=== PATIENT | female | born 1970 | race Caucasian/White ===

== ENCOUNTER 2017-10-27 18:16 | Inpatient (IN) | payer BC, OTHER ==
[~2017-10-27 18:16] MED LIST: ISOVUE-370 76%-LOCM 1 ML ONE
[2017-10-27] MEDS ORDERED: Adacel (T-DAP) 0.5 ML VIAL ONE (18:35)
[2017-10-27] MEDS ORDERED: Ketorolac Tromethamine 30 MG/ML VIAL ONE ×2 (18:42→19:53)
[2017-10-27] MEDS ORDERED: Morphine 4 MG/ML VIAL ONE ×2 (18:42→19:53)
[2017-10-27 18:53] LABS: #Lymphocytes 2.2 thou/uL (1.20-3.40); #Monocytes 0.6 thou/uL (0.11-0.59); #Neutrophils 12.1 thou/uL (1.40-6.50); %Eosinophils 0.3 % (0.0-10.0); %Lymphocytes 14.9 % (21.0-51.0); %Neutrophils 80.8 % (42.0-75.0); Hemoglobin 11.9 g/dL (12.0-16.0); Mean Corpuscular HGB CONC 33.8 g/dL (32.0-36.0); Mean Corpuscular Volume 91.6 fl (81.0-99.0); Mean Platelet Volume 7.9 fL (7.4-10.4); Platelet Count 270 thou/uL (130-400); RBC Distribution Width 11.7 % (11.5-14.5); Red Blood Cell (RBC) Count 3.84 mill/uL (4.20-5.40)
[2017-10-27 19:09] LABS: CKMB 2.2 ng/mL (0-6.6); Troponin I Less than 0.010 ng/mL (< 0.028)
--- NOTE | 2017-10-27 19:43 | RAD ---
PELVIC RADIOGRAPH: Date: 10/27/17 PROVIDED CLINICAL HISTORY: Pelvic pain status post injury. FINDINGS: Fractures of the left pubic body and left acetabulum are demonstrated. No additional fracture is evid ent. Alignment appears anatomic. Joint spaces appear preserved. IMPRESSION: Left acetabular and left pubic body fractures. Correlation with CT recommended. POS: [facility]
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
--- NOTE | 2017-10-27 20:08 | RAD ---
LEFT SHOULDER 3 VIEWS: Date: 10/27/17 PROVIDED CLINICAL HISTORY: Left shoulder pain status post injury. FINDINGS: There is no evidence for fracture or other acute osseous abnormality. If there is persistent clinical concern, conservative management and follow-up imaging are advised. IMPRESSION: As above. POS: [facility]
--- NOTE | 2017-10-27 20:11 | RAD ---
LEFT KNEE 2 VIEWS: Date: 10/27/17 PROVIDED CLINICAL HISTORY: Pain status post injury. FINDINGS: There is an ill-defined appearance to the cranial aspects of the tibial eminence medially, which coul d reflect eminence fracture. No additional potential fracture is evident. Alignment appears anatomic. Joint spaces appear preserved. IMPRESSION: Questioned tibial eminence fracture. POS: [facility]
--- NOTE | 2017-10-27 20:12 | RAD ---
2 VIEWS LEFT FEMUR: Date: 10/27/17 PROVIDED CLINICAL HISTORY: Pain status post injury. FINDINGS: There is no evidence for fracture or other acute osseous abnormality involving the left femur. Left-s ided pelvic fractures are detailed on concurrently performed CT of pelvis. Please see that report. IMPRESSION: As above. POS: [facility]
[2017-10-27 20:17] LABS: Bilirubin Negative (Negative); Blood, Urine Large (Negative); Clarity CLOUDY (Clear); Glucose, Urine (Dipstick) Negative (Negative); Leukocyte Negative (Negative); Nitrite Positive (Negative); Protein, Urine (Dipstick) 300 mg/dL (Neg-Trace)
[2017-10-27 20:19] LABS: Bacteria/HPF 4+ HPF (None Seen); RBC/HPF GREATER THAN 50-TNTC HPF (0-3); Squamous Epithelial 0-3 HPF (0-3)
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
[2017-10-27 20:23] LABS: Specific Gravity, Urine 1.044 (1.002-1.036)
[2017-10-27 20:24] LABS: Pregnancy Test - Urine (BHCG) Negative (Negative); Pregu Control Background? CLEAR/WHITE (CLR/WHITE); Pregu Control Bar Appear? YES (CONTROL BAR); Specific Gravity 1.044 (1.002-1.036)
[2017-10-27 20:27] LABS: Medtox Reader # READER 1; Opiate Screen Detected (NotDetected); Phencyclidine (PCP) Not Detected (NotDetected); THC/Cannabinoid Screen Not Detected (NotDetected)
[2017-10-27 20:28] LABS: Amphetamine Not Detected (NotDetected); Barbiturates Screen Not Detected (NotDetected); Benzodiazepine Screen Not Detected (NotDetected); Cocaine Metabolite Screen Not Detected (NotDetected); Medtox Control Line Valid? VALID (VALID); Methadone Not Detected (NotDetected); Methamphetamine Not Detected (NotDetected); Oxycodone Screen Not Detected (NotDetected); Tricyclic Screen Not Detected (NotDetected)
[2017-10-27 20:31] LABS: Hyaline Casts/LPF 0-3 HYALINE CAST LPF (0-3 Hyaline); Other Casts/LPF None Seen LPF (0-3 Hyaline)
[2017-10-27] MEDS ORDERED: Fentanyl 100 MCG/2 ML VIAL ONE (21:26)
[2017-10-27] MEDS ORDERED: Rib Fracture Protocol IV SCH (22:16)
[2017-10-27] MEDS ORDERED: Cyclobenzaprine 10 MG TAB PO PRN (22:16)
[2017-10-27] MEDS ORDERED: Ondansetron ODT 4 MG TAB PO PRN (22:16)
[2017-10-27] MEDS ORDERED: Dextrose 5% in Water 1,000 ML IV PRN (22:16)
[2017-10-27] MEDS ORDERED: Dextrose 50% Abboject 50 ML SYRINGE SLOW IVP PRN (22:16)
[2017-10-27] MEDS ORDERED: Ondansetron HCl/PF 4 MG/2 ML Vial IVP PRN (22:16)
[2017-10-27 22:47] LABS: Hemoglobin 10.8 g/dL (12.0-16.0)
[2017-10-27 22:58] VITALS: BMI 30.9
[2017-10-27] MEDS ORDERED: Famotidine 20 MG TAB PO SCH (23:00)
[2017-10-27 23:10] LABS: Anion Gap 12 mmol/L (10-20); BUN (Urea Nitrogen) 12 mg/dL (7.0-18.7); Calc. Creatinine Clearance 109 mL/min (70-130); Calcium 8.1 mg/dL (7.8-10.44); Carbon Dioxide 22 mmol/L (22-29); Chloride 107 mmol/L (98-107); Estimated GFR-MDRD 85; Glucose 106 mg/dL (70-105); Potassium 3.9 mmol/L (3.5-5.1); Sodium 137 mmol/L (136-145)
[2017-10-27] MEDS: Acetaminophen 650 MG Suppository PR SCH (23:24)
[2017-10-27] MEDS: Ketorolac Tromethamine 30 MG/ML VIAL IVP SCH (23:24)
[2017-10-27] MEDS: Sodium Chloride 0.9% 1,000 ML IV SCH (23:26)
[2017-10-28] MEDS: Morphine 4 MG/ML VIAL SLOW IVP PRN ×5 (00:40→20:57)
[2017-10-28] MEDS: Ketorolac Tromethamine 30 MG/ML VIAL IVP SCH ×4 (01:43→20:46)
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
[2017-10-28 04:44] LABS: #Lymphocytes 1.4 thou/uL (1.20-3.40); #Monocytes 0.6 thou/uL (0.11-0.59); #Neutrophils 5.4 thou/uL (1.40-6.50); %Basophils 0.1 % (0.0-1.0); %Eosinophils 0.3 % (0.0-10.0); %Lymphocytes 18.4 % (21.0-51.0); %Monocytes 8.1 % (0.0-10.0); %Neutrophils 73.2 % (42.0-75.0); Hemoglobin 9.6 g/dL (12.0-16.0); Mean Corpuscular HGB CONC 34.2 g/dL (32.0-36.0); Mean Corpuscular Hemoglobin 31.7 pg (27.0-31.0); Mean Corpuscular Volume 92.9 fl (81.0-99.0); Mean Platelet Volume 7.7 fL (7.4-10.4); Platelet Count 190 thou/uL (130-400); RBC Distribution Width 11.6 % (11.5-14.5); Red Blood Cell (RBC) Count 3.02 mill/uL (4.20-5.40); White Blood Cell (WBC) Count 7.4 thou/uL (4.8-10.8)
[2017-10-28 04:48] LABS: Anion Gap 11 mmol/L (10-20); BUN (Urea Nitrogen) 14 mg/dL (7.0-18.7); Calc. Creatinine Clearance 115 mL/min (70-130); Calcium 7.7 mg/dL (7.8-10.44); Carbon Dioxide 23 mmol/L (22-29); Chloride 110 mmol/L (98-107); Estimated GFR-MDRD 90; Glucose 103 mg/dL (70-105); Phosphorus 3.3 mg/dL (2.3-4.7); Potassium 4.1 mmol/L (3.5-5.1); Sodium 140 mmol/L (136-145)
[2017-10-28] MEDS: Sodium Chloride 0.9% 1,000 ML IV SCH ×2 (05:07→09:12)
[2017-10-28] MEDS: Acetaminophen 650 MG Suppository PR SCH ×3 (06:00→16:30)
[2017-10-28] MEDS: Cyclobenzaprine 10 MG TAB PO PRN ×3 (06:15→20:59)
[2017-10-28] MEDS: Famotidine 20 MG TAB PO SCH ×2 (08:48→20:46)
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
[2017-10-28 11:16] LABS: Hemoglobin 7.2 g/dL (12.0-16.0)
--- NOTE | 2017-10-28 11:50 | CT ---
PRELIMINARY REPORT/[facility]/EMERGENCY AFTER HOURS PROCEDURE: EXAM: CT Head Without Intravenous Contrast EXAM DATE/TIME: Exam ordered 10/28/2017 3:32 AM CLINICAL HISTORY: 47 years old, female; Condition or disease; Other: Tbi; Patient HX: F/u tbi TECHNIQUE: Axial computed tomography images of the head/brain without intravenous contrast. COMPARISON: CT Brain WO Con 2017-10-27 18:37 FINDINGS: Brain: Normal. No hemorrhage. No significant white matter disease. No edema. Ventricles: Normal. No ventriculomegaly. Bones/joints: Normal. No acute fracture. Soft tissues: Normal. Sinuses: Unremarkable as visualized. No acute sinusitis. Mastoid air cells: Unremarkable as visualized. No mastoid effusion. IMPRESSION: 1. No acute intracranial hemorrhage. 2. No significant interval change from prior. Thank you for allowing us to participate in the care of your patient. Dictated and Authenticated by: Oseas Peacock MD 10/28/2017 5:29 AM Central Time ([place] & [place]) FINAL REPORT HEAD CT WITHOUT CONTRAST: Date: 10/28/17 COMPARISON: 10/27/17. HISTORY: Reevaluate traumatic brain injury, trauma, pain. FINDINGS: This report is in agreement with the preliminary report given by Anupam. The imaged paranasal sinuses a nd mastoid air cells demonstrate mild mucosal thickening of the right maxillary sinus. There is no ac china osseous abnormality noted. No definite intracranial hemorrhage. No midline shift or mass effect. There is a stable linear area of density along the falx to the right of midline on image 22 which lik delonte represents calcification. IMPRESSION: Stable head CT. No definite intracranial hemorrhage noted. POS: [facility]
[2017-10-28] MEDS ORDERED: Sodium Chloride 0.9% 500 ML IV SCH ×2 (12:45→14:15)
--- NOTE | 2017-10-28 14:21 | PRG ---
DATE OF SERVICE: 10/28/2017 SUBJECTIVE: Ms. Sifuentes is in the ICU. Her blood pressure is mostly in the 90s. She is mentating no rmally. She is alert and oriented. Heart rate is 83. She has received 1 unit of blood and receivin g the second. Her urine output is a little low and she has received a 500 mL bolus. As stated above , a second unit of blood is being infused. Admission hemoglobin is 11.9, 10.8 last night, 9.6 earlie r this morning and 7.2 at 10:27. She states her abdominal pain is about the same as it was yesterday , perhaps a little more sore. LABORATORY DATA: Sodium 140, potassium 4.1, chloride 110, BUN and creatinine 14 and 0.7. OBJECTIVE: LUNGS: Clear to auscultation. Chest x-ray clear. CARDIAC: Regular rate and rhythm. ABDOMEN: Soft. Mild tenderness diffusely, but no peritoneal signs. EXTREMITIES: Unremarkable. ASSESSMENT AND PLAN: 1. Rib fractures, left. No pneumothorax, no hemothorax. Splenic injury. Hilar injury. Continue t o monitor. Continue to follow her hemoglobin. No indication for operative intervention at this time . 2. Bilateral perinephric hematomas without evidence of parenchymal bleeding. Pubic and sacral fract ures noted. Dr. Car has seen her and she is toe touch weightbearing as tolerated. This will b e treated nonoperatively. There is concern about her knee and this may have to be addressed at a lat er time, but no indication for MRI or other interventions at this time.
[2017-10-28] MEDS: Lactated Ringer's 1,000 ML IV SCH ×2 (14:42→20:45)
[2017-10-28] MEDS: FLUoxetine HCl 20 MG CAP PO PRN (16:23)
[2017-10-28 18:12] LABS: Hemoglobin 9.4 g/dL (12.0-16.0)
[2017-10-28 22:26] LABS: Hemoglobin 9.8 g/dL (12.0-16.0)
[2017-10-29] MEDS: Acetaminophen 650 MG Suppository PR SCH ×2 (00:50→05:27)
[2017-10-29] MEDS: Morphine 4 MG/ML VIAL SLOW IVP PRN (01:02)
[2017-10-29] MEDS: Ketorolac Tromethamine 30 MG/ML VIAL IVP SCH ×3 (01:02→14:04)
[2017-10-29] MEDS: clonazePAM 0.5 MG TAB PO PRN ×2 (01:03→16:09)
[2017-10-29] MEDS: Lactated Ringer's 1,000 ML IV SCH ×2 (06:04→17:55)
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
[2017-10-29] MEDS: Famotidine 20 MG TAB PO SCH ×2 (08:24→21:06)
[2017-10-29] MEDS: Cyclobenzaprine 10 MG TAB PO PRN ×2 (08:27→21:06)
[2017-10-29] MEDS: FLUoxetine HCl 20 MG CAP PO PRN (09:00)
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
[2017-10-29] MEDS ORDERED: Sodium Chloride 0.9% 500 ML IV SCH (11:00)
[2017-10-29] MEDS ORDERED: Acetaminophen 325 MG TAB PO SCH (12:00)
[2017-10-29 14:21] LABS: #Eosinphils 0.1 thou/uL (0.0-0.7); #Lymphocytes 1.1 thou/uL (1.20-3.40); #Monocytes 0.4 thou/uL (0.11-0.59); #Neutrophils 3.9 thou/uL (1.40-6.50); %Basophils 0.1 % (0.0-1.0); %Eosinophils 1.8 % (0.0-10.0); %Lymphocytes 20.1 % (21.0-51.0); %Monocytes 6.6 % (0.0-10.0); %Neutrophils 71.4 % (42.0-75.0); Hemoglobin 8.2 g/dL (12.0-16.0); Mean Corpuscular HGB CONC 34.3 g/dL (32.0-36.0); Mean Corpuscular Hemoglobin 31.7 pg (27.0-31.0); Mean Corpuscular Volume 92.4 fl (81.0-99.0); Mean Platelet Volume 8.1 fL (7.4-10.4); Platelet Count 98 thou/uL (130-400); RBC Distribution Width 12.1 % (11.5-14.5); Red Blood Cell (RBC) Count 2.58 mill/uL (4.20-5.40); White Blood Cell (WBC) Count 5.5 thou/uL (4.8-10.8)
[2017-10-29 14:36] LABS: Anion Gap 9 mmol/L (10-20); BUN (Urea Nitrogen) 11 mg/dL (7.0-18.7); Calc. Creatinine Clearance 122 mL/min (70-130); Calcium 7.1 mg/dL (7.8-10.44); Carbon Dioxide 20 mmol/L (22-29); Chloride 113 mmol/L (98-107); Estimated GFR-MDRD Greater than 90; Glucose 78 mg/dL (70-105); Magnesium 1.6 mg/dL (1.6-2.6); Phosphorus 1.7 mg/dL (2.3-4.7); Potassium 3.4 mmol/L (3.5-5.1); Sodium 139 mmol/L (136-145)
[2017-10-29] MEDS ORDERED: Potassium Phosphate 30 MMOL in Sodium Chloride 0.9% 250 ML 250 ML IVPB SCH (15:00)
[2017-10-29] MEDS ORDERED: Hydrocortisone Sod Succ/PF 100 mg/2 ml Vial IVP SCH (15:30)
[2017-10-29] MEDS: traMADol HCl 50 MG TAB PO SCH (17:48)
[2017-10-29] MEDS: Acetaminophen 500 MG TAB PO SCH (17:49)
--- NOTE | 2017-10-29 18:03 | PRG ---
DATE OF SERVICE: 10/29/2017 SUBJECTIVE: She is doing well today. She is in ICU. Blood pressure is better on the legs and her a rm. OBJECTIVE: VITAL SIGNS: Blood pressure ranged systolic 98 to 121, respiratory rate 25, heart rate 70. Urine ou tput 952. LUNGS: Clear to auscultation. CARDIAC: Regular rate and rhythm without murmur or gallop. ABDOMEN: Soft, tenderness diffusely with voluntary guarding. Bowel sounds present. EXTREMITIES: Unremarkable. LABORATORY DATA: White count is 5.5, hemoglobin 8.2. Basic metabolic profile was unremarkable. ASSESSMENT: Bilateral perinephric hematomas without renal fracture, grade 3 splenic injury, pelvic f racture, sacral ala fracture. PLAN: We will continue to monitor in the ICU another day. Chest x-ray has been ordered in the [facility]. We will need to start getting her up into a chair. We will advance her to full liquids as leatha ated and have her consume this slowly.
[2017-10-29] MEDS: Hydrocortisone Sod Succ/PF 100 mg/2 ml Vial IVP SCH (21:07)
[2017-10-29] MEDS: Ibuprofen 800 MG TAB PO SCH (21:07)
[2017-10-29] MEDS: Gabapentin 300 MG CAP PO SCH (21:07)
[2017-10-30] MEDS: Lactated Ringer's 1,000 ML IV SCH ×2 (01:39→10:00)
[2017-10-30] MEDS: Acetaminophen 500 MG TAB PO SCH ×5 (01:40→23:44)
[2017-10-30] MEDS: traMADol HCl 50 MG TAB PO SCH ×5 (01:40→23:44)
[2017-10-30 05:04] LABS: Anion Gap 9 mmol/L (10-20); BUN (Urea Nitrogen) 11 mg/dL (7.0-18.7); Calc. Creatinine Clearance 121 mL/min (70-130); Calcium 7.5 mg/dL (7.8-10.44); Carbon Dioxide 23 mmol/L (22-29); Chloride 111 mmol/L (98-107); Estimated GFR-MDRD Greater than 90; Glucose 109 mg/dL (70-105); Potassium 4.2 mmol/L (3.5-5.1); Sodium 139 mmol/L (136-145)
[2017-10-30] MEDS: Hydrocortisone Sod Succ/PF 100 mg/2 ml Vial IVP SCH ×3 (05:36→21:25)
[2017-10-30] MEDS: Ibuprofen 800 MG TAB PO SCH ×3 (05:37→21:25)
[2017-10-30] MEDS: Cyclobenzaprine 10 MG TAB PO PRN (05:37)
[2017-10-30 05:48] LABS: #Lymphocytes 0.8 thou/uL (1.20-3.40); #Monocytes 0.3 thou/uL (0.11-0.59); #Neutrophils 4.7 thou/uL (1.40-6.50); %Eosinophils 0.5 % (0.0-10.0); %Lymphocytes 13.7 % (21.0-51.0); %Monocytes 5.8 % (0.0-10.0); %Neutrophils 80.1 % (42.0-75.0); Hemoglobin 8.1 g/dL (12.0-16.0); Mean Corpuscular HGB CONC 34.9 g/dL (32.0-36.0); Mean Corpuscular Hemoglobin 32.2 pg (27.0-31.0); Mean Corpuscular Volume 92.1 fl (81.0-99.0); Mean Platelet Volume 8.3 fL (7.4-10.4); PLT Morphology Comment Appears Decreased; Platelet Count 104 thou/uL (130-400); RBC Distribution Width 11.8 % (11.5-14.5); Red Blood Cell (RBC) Count 2.53 mill/uL (4.20-5.40); White Blood Cell (WBC) Count 5.9 thou/uL (4.8-10.8)
[2017-10-30] MEDS: Famotidine 20 MG TAB PO SCH ×2 (07:37→21:25)
[2017-10-30] MEDS: FLUoxetine HCl 20 MG CAP PO SCH (07:37)
[2017-10-30] MEDS: Gabapentin 300 MG CAP PO SCH ×3 (07:37→21:25)
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
--- NOTE | 2017-10-30 09:25 | RAD ---
PORTABLE UPRIGHT FRONTAL CHEST: Date: 10/30/17 COMPARISON: 10/28/17. HISTORY: Ventilated CCU patient. FINDINGS: There is no endotracheal tube present. There is worsening aeration in both lung bases suggesting bila teral pleural effusions, right greater than left, and nonspecific bilateral lower lobe air space dise ase, right greater than left. There is also air space disease in the right perihilar region. No pneum othorax. IMPRESSION: Increasing pleural and parenchymal opacity in the lung bases, right greater than left, which may refl ect edema or aspiration. Bibasilar volume loss is a possibility. Recommend follow-up PA and lateral c hest imaging following treatment to document resolution. POS: [facility]
[2017-10-30 15:54] LABS: Hemoglobin 8.3 g/dL (12.0-16.0)
--- NOTE | 2017-10-30 16:46 | PRG ---
DATE OF SERVICE: 10/30/2017 SUBJECTIVE: Mirtha Sifuentes is a 47-year-old female. Ms. Sifuentes is in ICU this morning. She denies any nausea or vomiting. She reports her pain is improved relative to yesterday. OBJECTIVE: VITAL SIGNS: Temperature 98.2 degrees, 69, 18, 127/58. LUNGS: Clear to auscultation. CARDIAC: Regular rate and rhythm without murmur or gallop. ABDOMEN: Soft. Mild tenderness. No peritoneal signs. Diffuse tenderness. EXTREMITIES: Unremarkable. Blackwood 825 mL for a shift today, 1065 mL per 24 hours past. LABORATORY DATA: This morning, hemoglobin is 8.1, white count 5.9. Basic metabolic profile is unrem arkable. ASSESSMENT AND PLAN: 1. Status post left acetabular fracture and sacral fracture, nonoperative treatment per Dr. Kevin oliver, Orthopedics. She can be toe touch weightbearing on the left side. She will be limited weightbear ing for 6 weeks. 2. Anemia, status post transfusion this hospitalization. Hemoglobin is stabilized. She does not re quire transfusion over 48 hours. Continue to monitor. 3. Splenic injury, grade III. This is a hilar injury, but fortunately stable and splenectomy has no t been necessary. Continue to monitor hemoglobins. 4. Perinephric hematomas without a renal laceration obviously radiologically, continue to monitor. 5. Left rib fractures. 6. Patient is stable. We will plan to transfer her to the floor. We will order physical therapy wi th weightbearing limitations as noted above. We will change her to oral analgesics and saline lock h er.
[2017-10-31] MEDS: traMADol HCl 50 MG TAB PO SCH ×3 (05:56→18:35)
[2017-10-31] MEDS: Acetaminophen 500 MG TAB PO SCH ×3 (05:56→18:35)
[2017-10-31] MEDS: Hydrocortisone Sod Succ/PF 100 mg/2 ml Vial IVP SCH (05:57)
[2017-10-31] MEDS: Ibuprofen 800 MG TAB PO SCH ×3 (05:57→22:04)
[2017-10-31] MEDS ORDERED: Enoxaparin Sodium 40 MG/0.4 ML SYRINGE SC SCH (08:30)
--- NOTE | 2017-10-31 08:46 | RAD ---
CHEST 1 VIEW: History Dyspnea. Followup. COMPARISON: 10/30/17. FINDINGS: Cardiac silhouette is magnified. Pulmonary vasculature remains slightly engorged with patchy bilater al perihilar and bibasilar infiltrates, similar in appearance to the prior study. Mediastinum is mid line. No evidence of pneumothorax. IMPRESSION: Pulmonary vascular congestion, pleural fluid, and other findings are stable. POS: [facility]
[2017-10-31] MEDS: Polyethylene Glycol 3350 17 GM Packet PO SCH (08:49)
[2017-10-31] MEDS: FLUoxetine HCl 20 MG CAP PO SCH (08:50)
[2017-10-31] MEDS: Gabapentin 300 MG CAP PO SCH ×3 (08:50→22:04)
[2017-10-31] MEDS: Famotidine 20 MG TAB PO SCH ×2 (08:50→22:04)
[2017-10-31] MEDS ORDERED: Hydrocortisone Sod Succ/PF 100 mg/2 ml Vial IVP SCH (09:00)
[2017-10-31 09:09] LABS: #Lymphocytes 1.3 thou/uL (1.20-3.40); #Monocytes 0.4 thou/uL (0.11-0.59); #Neutrophils 5.8 thou/uL (1.40-6.50); %Basophils 0.2 % (0.0-1.0); %Eosinophils 0.4 % (0.0-10.0); %Lymphocytes 17.7 % (21.0-51.0); %Monocytes 5.4 % (0.0-10.0); %Neutrophils 76.2 % (42.0-75.0); Hemoglobin 8.6 g/dL (12.0-16.0); Mean Corpuscular HGB CONC 34.3 g/dL (32.0-36.0); Mean Corpuscular Hemoglobin 31.8 pg (27.0-31.0); Mean Corpuscular Volume 92.7 fl (81.0-99.0); Mean Platelet Volume 8.2 fL (7.4-10.4); Platelet Count 149 thou/uL (130-400); RBC Distribution Width 12.1 % (11.5-14.5); White Blood Cell (WBC) Count 7.6 thou/uL (4.8-10.8)
[2017-10-31 09:33] LABS: Anion Gap 9 mmol/L (10-20); BUN (Urea Nitrogen) 9 mg/dL (7.0-18.7); Calc. Creatinine Clearance 108 mL/min (70-130); Calcium 8.1 mg/dL (7.8-10.44); Carbon Dioxide 24 mmol/L (22-29); Chloride 110 mmol/L (98-107); Estimated GFR-MDRD 84; Glucose 124 mg/dL (70-105); Magnesium 1.9 mg/dL (1.6-2.6); Potassium 3.6 mmol/L (3.5-5.1); Sodium 139 mmol/L (136-145)
[2017-10-31 10:05] LABS: Phosphorus 1.6 mg/dL (2.3-4.7)
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
[2017-10-31] MEDS ORDERED: K-Phos Neutral 250 MG TAB PO SCH (11:00)
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
[2017-11-01] MEDS: traMADol HCl 50 MG TAB PO SCH ×5 (00:04→23:05)
[2017-11-01] MEDS: Acetaminophen 500 MG TAB PO SCH ×5 (00:04→23:04)
[2017-11-01 05:06] LABS: #Eosinphils 0.2 thou/uL (0.0-0.7); #Lymphocytes 2.1 thou/uL (1.20-3.40); #Monocytes 0.5 thou/uL (0.11-0.59); #Neutrophils 4.1 thou/uL (1.40-6.50); %Basophils 0.2 % (0.0-1.0); %Eosinophils 2.8 % (0.0-10.0); %Lymphocytes 30.5 % (21.0-51.0); %Monocytes 6.6 % (0.0-10.0); %Neutrophils 59.9 % (42.0-75.0); Hemoglobin 7.5 g/dL (12.0-16.0); Mean Corpuscular HGB CONC 35.1 g/dL (32.0-36.0); Mean Corpuscular Hemoglobin 32.8 pg (27.0-31.0); Mean Corpuscular Volume 93.5 fl (81.0-99.0); Platelet Count 159 thou/uL (130-400); RBC Distribution Width 12.6 % (11.5-14.5); Red Blood Cell (RBC) Count 2.28 mill/uL (4.20-5.40); White Blood Cell (WBC) Count 6.9 thou/uL (4.8-10.8)
[2017-11-01 05:26] LABS: Anion Gap 5 mmol/L (10-20); BUN (Urea Nitrogen) 13 mg/dL (7.0-18.7); Calc. Creatinine Clearance 117 mL/min (70-130); Calcium 7.9 mg/dL (7.8-10.44); Carbon Dioxide 28 mmol/L (22-29); Chloride 113 mmol/L (98-107); Estimated GFR-MDRD Greater than 90; Glucose 85 mg/dL (70-105); Magnesium 1.6 mg/dL (1.6-2.6); Sodium 143 mmol/L (136-145)
[2017-11-01 05:30] LABS: Phosphorus 1.8 mg/dL (2.3-4.7)
[2017-11-01] MEDS ORDERED: Potassium Phosphate 15 MMOL in Sodium Chloride 0.9% 250 ML 250 ML IVPB SCH (06:00)
[2017-11-01] MEDS: Ibuprofen 800 MG TAB PO SCH ×3 (06:09→23:04)
[2017-11-01] MEDS: Polyethylene Glycol 3350 17 GM Packet PO SCH (08:32)
[2017-11-01] MEDS: Cyclobenzaprine 10 MG TAB PO PRN (08:32)
[2017-11-01] MEDS: Gabapentin 300 MG CAP PO SCH ×3 (08:32→20:12)
[2017-11-01] MEDS: FLUoxetine HCl 20 MG CAP PO SCH (08:32)
[2017-11-01] MEDS: Famotidine 20 MG TAB PO SCH ×2 (08:33→20:12)
[2017-11-01] MEDS: Ascorbic Acid 500 mg Chewable Tablet PO SCH ×2 (08:39→20:11)
--- NOTE | 2017-11-01 09:46 | RAD ---
PORTABLE URIGHT FRONTAL CHEST RADIOGRAPH: DATE: 11/01/17. COMPARISON: 10/31/17. HISTORY: Respiratory distress. FINDINGS: There is hazy density in the right lung base and the medial left lung base, slightly improved since t he prior exam. Small bilateral pleural effusions are suspected, right greater than left. No pneumot horax. There is pulmonary vascular congestion. IMPRESSION: Findings suggesting mild interval improvement in pulmonary edema and/or infectious pneumonitis. Foll owup to full resolution advised. POS: [facility]
[2017-11-01] MEDS ORDERED: Bisacodyl 10 MG SUPP PR PRN (11:43)
[2017-11-01] MEDS ORDERED: Magnesium Citrate 300 ML BOT PO SCH (12:15)
[2017-11-01] MEDS: Scopolamine 1.5 mg/72 hour Patch TD SCH (12:21)
[2017-11-01 14:52] LABS: #Eosinphils 0.4 thou/uL (0.0-0.7); #Lymphocytes 2.1 thou/uL (1.20-3.40); #Monocytes 0.5 thou/uL (0.11-0.59); #Neutrophils 4.4 thou/uL (1.40-6.50); %Basophils 0.3 % (0.0-1.0); %Eosinophils 5.1 % (0.0-10.0); %Lymphocytes 28.4 % (21.0-51.0); %Neutrophils 59.2 % (42.0-75.0); Hemoglobin 8.1 g/dL (12.0-16.0); Mean Corpuscular HGB CONC 34.7 g/dL (32.0-36.0); Mean Corpuscular Hemoglobin 32.2 pg (27.0-31.0); Mean Corpuscular Volume 92.9 fl (81.0-99.0); Mean Platelet Volume 7.3 fL (7.4-10.4); Platelet Count 167 thou/uL (130-400); RBC Distribution Width 12.7 % (11.5-14.5); White Blood Cell (WBC) Count 7.4 thou/uL (4.8-10.8)
[2017-11-01] MEDS: Ferrous Sulfate 325 MG TAB PO SCH (16:18)
[2017-11-01] MEDS ORDERED: Potassium Phosphate 30 MMOL in Sodium Chloride 0.9% 500 ML IVPB SCH (17:00)
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
[2017-11-02] MEDS: Acetaminophen 500 MG TAB PO SCH ×4 (05:23→23:19)
[2017-11-02] MEDS: Ibuprofen 800 MG TAB PO SCH ×3 (05:23→23:19)
[2017-11-02] MEDS: traMADol HCl 50 MG TAB PO SCH ×4 (05:23→23:19)
[2017-11-02 06:19] LABS: #Eosinphils 0.4 thou/uL (0.0-0.7); #Lymphocytes 1.9 thou/uL (1.20-3.40); #Monocytes 0.5 thou/uL (0.11-0.59); #Neutrophils 4.2 thou/uL (1.40-6.50); %Basophils 0.2 % (0.0-1.0); %Eosinophils 5.9 % (0.0-10.0); %Lymphocytes 26.8 % (21.0-51.0); %Monocytes 6.7 % (0.0-10.0); %Neutrophils 60.4 % (42.0-75.0); Hemoglobin 8.4 g/dL (12.0-16.0); Mean Corpuscular HGB CONC 34.5 g/dL (32.0-36.0); Mean Corpuscular Hemoglobin 32.2 pg (27.0-31.0); Mean Corpuscular Volume 93.3 fl (81.0-99.0); Mean Platelet Volume 7.8 fL (7.4-10.4); Platelet Count 183 thou/uL (130-400); RBC Distribution Width 12.7 % (11.5-14.5); Red Blood Cell (RBC) Count 2.62 mill/uL (4.20-5.40); White Blood Cell (WBC) Count 6.9 thou/uL (4.8-10.8)
[2017-11-02 06:51] LABS: Anion Gap 10 mmol/L (10-20); BUN (Urea Nitrogen) 9 mg/dL (7.0-18.7); Calc. Creatinine Clearance 137 mL/min (70-130); Calcium 7.5 mg/dL (7.8-10.44); Carbon Dioxide 23 mmol/L (22-29); Chloride 108 mmol/L (98-107); Estimated GFR-MDRD Greater than 90; Glucose 76 mg/dL (70-105); Magnesium 2.2 mg/dL (1.6-2.6); Phosphorus 2.9 mg/dL (2.3-4.7); Potassium 3.5 mmol/L (3.5-5.1); Sodium 137 mmol/L (136-145)
[2017-11-02] MEDS: Famotidine 20 MG TAB PO SCH ×2 (08:11→20:19)
[2017-11-02] MEDS: FLUoxetine HCl 20 MG CAP PO SCH (08:11)
[2017-11-02] MEDS: Polyethylene Glycol 3350 17 GM Packet PO SCH (08:11)
[2017-11-02] MEDS: Gabapentin 300 MG CAP PO SCH ×3 (08:11→20:19)
[2017-11-02] MEDS: Ascorbic Acid 500 mg Chewable Tablet PO SCH ×2 (08:11→20:19)
[2017-11-02] MEDS: Ferrous Sulfate 325 MG TAB PO SCH ×2 (08:11→17:07)
[2017-11-02] MEDS ORDERED: Potassium Chloride 20 MEQ TAB PO SCH (11:45)
[2017-11-02] MEDS: Cyclobenzaprine 10 MG TAB PO PRN (13:05)
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
[2017-11-03] MEDS: traMADol HCl 50 MG TAB PO SCH ×4 (05:25→23:17)
[2017-11-03] MEDS: Ibuprofen 800 MG TAB PO SCH ×3 (05:25→23:17)
[2017-11-03] MEDS: Acetaminophen 500 MG TAB PO SCH ×4 (05:25→23:17)
[2017-11-03] MEDS: FLUoxetine HCl 20 MG CAP PO SCH (08:18)
[2017-11-03] MEDS: Polyethylene Glycol 3350 17 GM Packet PO SCH (08:19)
[2017-11-03] MEDS: Famotidine 20 MG TAB PO SCH ×2 (08:19→20:50)
[2017-11-03] MEDS: Gabapentin 300 MG CAP PO SCH ×3 (08:19→20:50)
[2017-11-03] MEDS: Ascorbic Acid 500 mg Chewable Tablet PO SCH ×2 (08:19→20:50)
[2017-11-03] MEDS: Ferrous Sulfate 325 MG TAB PO SCH ×2 (08:19→17:08)
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
[2017-11-04] MEDS: Acetaminophen 500 MG TAB PO SCH ×3 (05:30→17:21)
[2017-11-04] MEDS: traMADol HCl 50 MG TAB PO SCH ×3 (05:31→17:21)
[2017-11-04] MEDS: Ibuprofen 800 MG TAB PO SCH ×2 (05:33→14:28)
[2017-11-04] MEDS: Ferrous Sulfate 325 MG TAB PO SCH (08:08)
[2017-11-04] MEDS: Ascorbic Acid 500 mg Chewable Tablet PO SCH (08:09)
[2017-11-04] MEDS: FLUoxetine HCl 20 MG CAP PO SCH (08:09)
[2017-11-04] MEDS: Famotidine 20 MG TAB PO SCH (08:09)
[2017-11-04] MEDS: Gabapentin 300 MG CAP PO SCH ×2 (08:09→14:28)
[2017-11-04] MEDS: Polyethylene Glycol 3350 17 GM Packet PO SCH (08:10)
[2017-11-04] MEDS ORDERED: Enoxaparin Sodium 40 MG/0.4 ML SYRINGE SC SCH (13:45)
[2017-11-04] MEDS: Scopolamine 1.5 mg/72 hour Patch TD SCH (14:07)
--- NOTE | 2017-11-04 15:53 | ULT ---
BILATERAL LOWER EXTREMITY VENOUS DOPPLER ULTRASOUND 11/04/17 COMPARISON: None. HISTORY: Immobility, pain, trauma, assess for DVT. TECHNIQUE: Multiplanar corral scale sonographic imaging of the venous structures of bilateral lower extremity is o btained with color flow and spectral analysis. FINDINGS: Bilateral common femoral veins, greater saphenous veins, profunda femoral veins, femoral veins, popli teal veins, and posterior tibial veins are patent. There is normal blood flow, augmentation and compr ession within the deep venous system bilaterally with no evidence for DVT on either side. IMPRESSION: No evidence for deep venous thrombosis of either lower extremity. POS: [facility]
[2017-11-04 15:57] VITALS: BP 149/100; TEMP 98
[2017-11-05] MEDS ORDERED: Enoxaparin Sodium 40 MG/0.4 ML SYRINGE SC SCH (09:00)
== END 2017-11-04 17:24 | DRG 964 ==
LOC: ERS 18:16 → CCU 22:10 → SJJU 10-30 11:46
PROVIDERS: ADMIT Specialist; ATTEND Specialist
DX: S36.031A Moderate laceration of spleen, initial encounter (principal); S32.402A Unspecified fracture of left acetabulum, initial encounter for closed fracture; S22.42XA Multiple fractures of ribs, left side, initial encounter for closed fracture; S27.0XXA Traumatic pneumothorax, initial encounter; S32.592A Other specified fracture of left pubis, initial encounter for closed fracture; S32.10XA Unspecified fracture of sacrum, initial encounter for closed fracture; S37.012A Minor contusion of left kidney, initial encounter; S27.321A Contusion of lung, unilateral, initial encounter; S37.011A Minor contusion of right kidney, initial encounter; K59.00 Constipation, unspecified; R42 Dizziness and giddiness; F32.9 Major depressive disorder, single episode, unspecified; V43.51XA Car driver injured in collision with sport utility vehicle in traffic accident, initial encounter; Z88.5 Allergy status to narcotic agent; Z79.899 Other long term (current) drug therapy
CPT/HCPCS: 36415; 36430; 51702; 70450; 71045; 71260; 72125; 72170; 74177; 80048; 80306; 81003; 81015; 81025; 82533; 82553; 83735; 84100; 84484; 85025; 86850; 86900; 86901; 90715; 93970; 94640; 96361; 96374; 96375; 96376; 99292; G0390; G8978-GP-CM; G8979-GP-CJ; G8987-GO-CJ; G8988-GO-CI; J1650; J1720; J1885; J2270; J3010; J3475; J7050; J7620; P9016; P9045

== ENCOUNTER 2018-11-03 14:14 | Emergency (ER) | payer BC, SELFPAY ==
[2018-11-03 17:26] LABS: Acetaminophen Less than 6.0 mcg/mL (10.0-30.0); Alcohol Less than 10 mg/dL (Less than 10); Salicylate Less than 8.0 mg/dL (15.0-30.0)
[2018-11-03] MEDS ORDERED: Acetaminophen 325 MG TAB ONE (18:33)
== END 2018-11-04 00:43 ==
LOC: ERS 14:14
DX: T42.6X2A Poisoning by other antiepileptic and sedative-hypnotic drugs, intentional self-harm, initial encounter (principal); F32.9 Major depressive disorder, single episode, unspecified; Z79.899 Other long term (current) drug therapy
CPT/HCPCS: 36415; 80307; 93005